=== PATIENT | female | born 1965 | race American Indian/Alaskan Native ===

== ENCOUNTER 2017-11-22 18:12 | Emergency (ER) | payer OTHER ==
[2017-11-22 18:12] VITALS: BMI 31.7
[2017-11-22 18:47] VITALS: TEMP 98.3
[2017-11-22] MEDS ORDERED: Sodium Chloride 0.9% 500 ML IV STA (19:04)
--- NOTE | 2017-11-22 19:12 | ED PDOC ---
Arrival/HPI - General Chief Complaint: Dizziness/Lightheaded Time Seen by Provider: 11/22/17 18:56 Historian: Patient - History of Present Illness Time/Duration: Other (Yesterday) Symptom Onset: Gradual Symptom Course: Unchanged Severity Level: Moderate Activities at Onset: Rest Associated Symptoms (Text): 11/22/17 19:09 Patient complains of dizziness which she describes as a spinning sensation and difficulty ambulating feeling as if she is leaning to one side which began yesterday. Made worse by certain movements and walking. Some nausea but no vomiting. No headache. No numbness tingling or paresthesias. No weakness. No neck pain. She has never experienced this previously. No chest pain palpitations or dyspnea. Past Medical History - Infectious Disease Hx of Infectious Diseases: None - Tetanus Immunization Tetanus Immunization: Unknown - Reproductive Menopause: Yes - Past Medical History Past Medical History: No Previous - Cardiac Hx Cardiac Disorders: Yes Hx Hypertension: Yes - Psychiatric Hx Depression: No Hx Emotional Abuse: No Hx Physical Abuse: No Hx Substance Use: No - Surgical History Hx Section: Yes - Anesthesia Hx Anesthesia: Yes Hx Anesthesia Reactions: No Hx Malignant Hyperthermia: No - Suicidal Assessment Feels Threatened In Home Enviroment: No Family/Social History - Physician Review Nursing Documentation Reviewed: Yes Family/Social History: Unknown Family HX Smoking Status: Former Smoker Hx Alcohol Use: No Hx Substance Use: No Hx Substance Use Treatment: No Allergies/Home Meds Allergies/Adverse Reactions: Allergies aspirin Allergy (Verified 11/22/17 18:47) ANAPHYLAXIS Home Medications: Home Meds Medication Instructions Recorded Confirmed Losartan/Hydrochlorothiazide 1 each PO DAILY 11/22/17 11/22/17 [Losartan-Hctz 50-12.5 mg Tab] Review of Systems - Physician Review All systems were reviewed & negative as marked: Yes - Review of Systems Constitutional: Normal Respiratory: Normal Cardiovascular: Normal Gastrointestinal: Normal Genitourinary Female: Normal Neurological: Dizziness, Gait Changes. absent: Headache, Focal Weakness, Speech Changes, Facial Droop, Disequilibrium, Seizure Physical Exam Vital Signs Temp Pulse Resp BP Pulse Ox 11/22/17 20:56 88 18 119/73 100 11/22/17 18:43 98.3 F 96 H 20 117/77 99 Temperature: Afebrile Blood Pressure: Normal Pulse: Regular Respiratory Rate: Normal Appearance: Positive for: Well-Appearing, Non-Toxic, Uncomfortable Pain Distress: None Mental Status: Positive for: Alert and Oriented X 3 - Systems Exam Head: Present: Atraumatic, Normocephalic Pupils: Present: PERRL Extroacular Muscles: Present: EOMI Conjunctiva: Present: Normal Ears: Present: NORMAL TM, Normal Canal. No: Erythema Mouth: Present: Moist Mucous Membranes Pharnyx: No: ERYTHEMA, EXUDATE, TONSILS ENLARGED Neck: Present: Normal Range of Motion Respiratory/Chest: Present: Clear to Auscultation, Good Air Exchange. No: Respiratory Distress, Accessory Muscle Use Cardiovascular: Present: Regular Rate and Rhythm, Normal S1, S2. No: Murmurs Abdomen: Present: Normal Bowel Sounds. No: Tenderness, Distention, Peritoneal Signs, Rebound, Guarding Upper Extremity: Present: Normal Inspection. No: Cyanosis, Edema Lower Extremity: Present: Normal Inspection. No: Edema Neurological: Present: GCS=15, CN II-XII Intact, Speech Normal, Motor Func Grossly Intact, Normal Cerebellar Funct, Gait Normal Skin: Present: Warm, Dry, Normal Color. No: Rashes Psychiatric: Present: Alert, Oriented x 3, Normal Insight, Normal Concentration Medical Decision Making ED Course and Treatment: 11/22/17 20:15 EKG shows normal sinus rhythm rate approximately 90 with Q waves inferiorly and no acute ST or T-wave changes with no old available for comparison. 11/22/17 20:57 Symptoms have improved. Workup including CT scan is unremarkable. Discharge home to follow-up with PMD. Follow up in ER as needed. - Lab Interpretations Lab Results: 11/22/17 19:25 11/22/17 19:25 Lab Results 11/22/17 19:26: POC Glucose (mg/dL) 111 H 11/22/17 19:25: Sodium 142, Potassium 3.7, Chloride 105, Carbon Dioxide 26, Anion Gap 15, BUN 16, Creatinine 0.8, Est GFR ( Amer) > 60, Est GFR (Non- Af Amer) > 60, Random Glucose 120 H, Calcium 9.6, Magnesium 1.9, Total Bilirubin 0.4, AST 19, ALT 28, Alkaline Phosphatase 49, Lactate Dehydrogenase 472, Total Creatine Kinase 91, Troponin I < 0.01, Total Protein 7.5, Albumin 4.2 , Globulin 3.4, Albumin/Globulin Ratio 1.2 11/22/17 19:25: WBC 7.0, RBC 4.31, Hgb 12.7, Hct 36.8, MCV 85.4, MCH 29.5, MCHC 34.5, RDW 14.1, Plt Count 244, MPV 9.7, Gran % 41.9 L, Lymph % (Auto) 52.2 H, Beauregard % (Auto) 4.3, Eos % (Auto) 1.3 L, Baso % (Auto) 0.3, Gran # 2.92, Lymph # ( Auto) 3.6 H, Bea[place]gard # (Auto) 0.3, Eos # (Auto) 0.1, Baso # (Auto) 0.02 - RAD Interpretation Radiology Orders: 11/22/17 19:04 HEAD W/O CONTRAST [CT] Stat CT scan of the head as read by the radiologist shows no acute findings. Bottom Saw Operator: Radiologist - Medication Orders Current Medication Orders: Discontinued Medications Sodium Chloride (Sodium Chloride 0.9%) 500 mls @ 1,000 mls/hr IV .Q30M STA Stop: 11/22/17 19:33 Last Admin: 11/22/17 20:02 Dose: 1,000 mls/hr eMAR Start Stop Document 11/22/17 20:02 GMD (Rec: 11/22/17 20:03 GMD [id number]) Intravenous Solution Start Date 11/22/17 Start Time 20:03 End Date 11/22/17 End time 20:33 Total Infusion Time 30 Meclizine HCl (Antivert) 25 mg PO ONCE ONE Stop: 11/22/17 19:06 Last Admin: 11/22/17 20:03 Dose: 25 mg Ondansetron HCl (Zofran Inj) 4 mg IVP ONCE ONE Stop: 11/22/17 19:06 Last Admin: 11/22/17 20:03 Dose: 4 mg IVP Administration Document 11/22/17 20:03 GMD (Rec: 11/22/17 20:03 GMD [id number]) Charges for Administration # of IVP Administrations 1 Disposition/Present on Arrival - Present on Arrival Any Indicators Present on Arrival: No History of DVT/PE: No History of Uncontrolled Diabetes: No Urinary Catheter: No History of Decub. Ulcer: No History Surgical Site Infection Following: None - Disposition Have Diagnosis and Disposition been Completed?: Yes Diagnosis: Vertigo Disposition: HOME/ ROUTINE Disposition Time: 20:57 Patient Plan: Discharge Condition: IMPROVED Discharge Instructions (ExitCare): Vertigo (a Type of Dizziness) (DC) Prescriptions: Meclizine [Meclizine*] 25 mg PO Q6 #20 tab Ondansetron [Zofran Odt] 4 mg SL Q6 #20 odt Referrals: Thais Martinez, [Primary Care Provider] - Follow up with primary Smita Durham MD [Staff Provider] - Follow up with primary Forms: [facility] (Kittitian), WORK NOTE
[2017-11-22 19:46] LABS: BASO # 0.02 K/mm3 (0.0-2.0); BASO % 0.3 % (0.0-3.0); EOS # 0.1 (0.0-0.7); EOS % 1.3 % (1.5-5.0); GRAN # 2.92 (1.4-6.5); GRAN % 41.9 % (50.0-68.0); HEMOGLOBIN 12.7 g/dL (12.0-16.0); LYMPH # 3.6 (1.2-3.4); LYMPH % 52.2 % (22.0-35.0); MEAN CELL VOLUME 85.4 fl (80.0-105.0); MEAN CORPUSCULAR HEMOGLOBIN 29.5 pg (25.0-35.0); MEAN CORPUSCULAR HGB CONC 34.5 g/dl (31.0-37.0); MEAN PLATELET VOLUME 9.7 fl (7.0-11.0); MONO # 0.3 (0.1-0.6); MONO % 4.3 % (1.0-6.0); RBC 4.31 10^6/uL (3.5-6.1); RED CELL DISTRIBUTION WIDTH 14.1 % (11.5-14.5)
[2017-11-22 20:00] LABS: ALB/GLOB RATIO 1.2 (1.1-1.8); ALBUMIN 4.2 g/dL (3.0-4.8); ALT/SGPT 28 U/L (7-56); AST/SGOT 19 U/L (14-36); BLOOD UREA NITROGEN 16 mg/dL (7-21); CALCIUM 9.6 mg/dL (8.4-10.5); GFR AFRICAN-AMERICAN > 60; GFR NON-AFRICAN AMERICAN > 60
[2017-11-22 20:01] LABS: TROPONIN I < 0.01 ng/mL
--- NOTE | 2017-11-22 20:46 | CT ---
EXAM: CT Head Without Intravenous Contrast CLINICAL HISTORY: 51 years old, female; Signs and symptoms; Dizziness; Patient HX: Dizzy TECHNIQUE: Axial computed tomography images of the head/brain without intravenous contrast. All CT scans at this facility use one or more dose reduction techniques, viz.: automated exposure control; ma/kV adjustment per patient size (including targeted exams where dose is matched to indication; i.e. head); or iterative reconstruction technique. Coronal and sagittal reformatted images were created and reviewed. COMPARISON: No relevant prior studies available. FINDINGS: Brain: No intracranial hemorrhage. No mass. No definite edema. Ventricles: No hydrocephalus. Bones/joints: No acute fracture. Calvarial thickening. Soft tissues: Unremarkable. Sinuses: No acute sinusitis. Mastoid air cells: No mastoid effusion. Orbits: Unremarkable as visualized. IMPRESSION: 1. No definite acute intracranial abnormality. 2. Incidental/non-acute findings are described above.
[2017-11-22 20:57] VITALS: BP 119/73; PULSE 88; RESP 18; O2SAT 100
--- NOTE | 2017-11-23 11:06 | CARD ---
APPROVED REPORT EKG Measurement Heart [id number] <Conclusion> Normal sinus rhythm Nonspecific T wave abnormality Prolonged QTc
== END 2017-11-22 21:07 | disposition home or self-care (01) ==
LOC: ED 18:12
DX: R42 Dizziness and giddiness (principal); I10 Essential (primary) hypertension; Z87.891 Personal history of nicotine dependence
CPT/HCPCS: 70450; 80053; 82550; 82948; 83615; 83735; 84484; 85025; 93005; 96374; 99285; J2405; J7040